=== PATIENT | male | born 1985 | race Caucasian/White ===

== ENCOUNTER 2019-08-15 07:22 | Outpatient (CLI) | payer OTHER ==
[~2019-08-15 07:22] MED LIST: EFFEXOR XR150 MG; XANAX2 MG
[2019-08-15] MEDS ORDERED: XANAX0.25 MG (13:42)
[2019-08-15] MEDS ORDERED: CIPRO500 MG PO (19:04)
[2019-08-15] MEDS ORDERED: PEPCID AC20 MG PO (19:04)
== END 2019-08-15 07:24 | disposition home or self-care (01) ==
LOC: SONOGRAMA 07:22
DX: E04.1 Nontoxic single thyroid nodule (principal)

== ENCOUNTER 2019-08-15 13:35 | Emergency (ER) | payer OTHER ==
[~2019-08-15] VITALS: Ht 180.3 cm; Wt 90.7 kg
[2019-08-15] MEDS ORDERED: XANAX0.25 MG (13:42)
[2019-08-15] MEDS ORDERED: CIPRO500 MG PO (19:04)
[2019-08-15] MEDS ORDERED: PEPCID AC20 MG PO (19:04)
== END 2019-08-15 19:45 | disposition home or self-care (01) ==
LOC: ER 13:35
DX: R19.7 Diarrhea, unspecified (principal)